=== PATIENT | male | born 1945 | race Caucasian/White ===

== ENCOUNTER 2019-10-31 14:43 | Emergency (ER) | payer MEDICARE, BC ==
[~2019-10-31] VITALS: Ht 188 cm; Wt 79.4 kg
[~2019-10-31 14:43] MED LIST: FLEXERIL10 MG PO; LIPITOR40 MG PO; LISINOPRIL20 MG PO; METFORMIN HCL500 MG PO
[2019-10-31] MEDS ORDERED: METOPROLOL SUCC25 MG PO (15:12)
[2019-10-31] MEDS ORDERED: GLIPIZIDE5 MG PO (15:12)
[2019-10-31] MEDS ORDERED: ELIQUIS5 MG PO (15:13)
--- NOTE | 2019-11-01 07:31 | EKG ---
[facility] [address] [facility] [address] [place] [address] Signed Atrial-paced rhythm with prolonged AV conduction Abnormal ECG No previous ECGs available Confirmed by PEDRITO MC MD ([id number] on 11/01/2019 7:31:18 AM Electronically Signed By: PEDRITO MC MD 11/01/19 0731 PATIENT NAME: IRA DENNIS NERI Electrocardiogram DATE OF : 47 PHYSICIAN: PEDRITO MC MD REPORT #: [id number] REPORT IS CONFIDENTIAL AND NOT TO BE RELEASED WITHOUT AUTHORIZATION
== END 2019-10-31 16:21 | disposition home or self-care (01) ==
LOC: ED 14:43
PROC: 0XQPXZZ Repair Left Index Finger, External Approach (ICD-10-PCS; principal; 2019-10-31)
DX: S61.211A Laceration without foreign body of left index finger without damage to nail, initial encounter (principal); R55 Syncope and collapse; N17.9 Acute kidney failure, unspecified; I10 Essential (primary) hypertension; E11.9 Type 2 diabetes mellitus without complications; Z88.0 Allergy status to penicillin; Z79.899 Other long term (current) drug therapy; Z79.84 Long term (current) use of oral hypoglycemic drugs; Z79.01 Long term (current) use of anticoagulants; X58.XXXA Exposure to other specified factors, initial encounter
CPT/HCPCS: 12001; 73140; 80048; 84484; 85025; 93005; 93010; 99284-25